=== PATIENT | female | born 1950 | race Caucasian/White ===

== ENCOUNTER 2017-07-13 21:42 | Emergency (ER) | payer MEDICARE ==
[2017-07-13 22:29] LABS: BASOPHIL % 0.4 % (0.0-0.4); Basophil (Absolute #) 0.06 (0-0.4); Eosinophil % 1.5 % (0.00-5.0); Eosinophil (Absolute #) 0.21 (0-0.5); Granulocytes % 77.7 % (36.0-66.0); Hematocrit 35.9 % (35-47); Hemoglobin 11.4 gm/dl (12.0-16.0); Lymphocyte (Absolute #) 2.03 (1.0-4.6); Lymphocytes % 14.3 % (24.0-44.0); Mean Cell Volume 74.3 fl (78-100); Mean Corpuscular Hemoglobin 23.6 pg (26-32); Mean Corpuscular Hgb Concent. 31.8 g/dl (32-36); Mean Platelet Volume 10.7 fl (6-9.5); Monocyte (Absolute #) 0.86 (0.0-1.3); Monocytes % 6.1 % (0.0-12.0); Platelet Count 311 K/mm3 (150-450); Red Blood Count 4.83 M/mm3 (4.1-5.4); Red Cell Distribution Width 16.3 % (11.5-14.0); White Blood Count 14.2 K/mm3 (4.0-10.5)
[2017-07-13 22:31] LABS: ADD MANUAL DIFF? NO (NO)
[2017-07-13 22:40] LABS: PROTIME 11.6 SECONDS (9.95-12.35)
[2017-07-13 22:49] LABS: ALBUMIN 3.7 g/dL (3.5-5.0); ALKALINE PHOSPHATASE 87 U/L (38-126); ANION GAP 24.2 MEQ/L (5-15); BLOOD UREA NITROGEN 91 mg/dL (7-17); CHLORIDE 99 mmol/L (98-107); Carbon Dioxide 19 mmol/L (22-30); Creatinine 1 7.11 mg/dL (0.52-1.04); EST GLOMERULAR FILTRATION RATE 6.1 ML/MIN; Glucose 281 mg/dL (74-106); MAGNESIUM 1.8 mg/dL (1.6-2.3); Potassium 5.3 mmol/L (3.5-5.1); SGOT/AST 9 U/L (14-36); SGPT/ALT 6 U/L (0-35); SODIUM 137 mmol/L (137-145); Total Protein 7.3 g/dL (6.3-8.2)
[2017-07-13 22:59] LABS: NT PRO BNP 9590 pg/mL (0-900)
[2017-07-13 23:01] LABS: TROPONIN 0.023 ng/mL (0.000-0.034)
[2017-07-13 23:02] LABS: A-aADO2 24; ABG HEMOGLOBIN 10.6; ABG POTASSIUM 4.9 (3.5-5.1); ARTERIAL BLD GAS O2 SATURATION 96.4 % (95-100); ARTERIAL BLOOD GAS BASE EXCESS -9.7 (-2.0-2.0); ARTERIAL BLOOD GAS FIO2 21 %; ARTERIAL BLOOD GAS PCO2 32 mmHg (35-45); ARTERIAL BLOOD GAS PO2 86 mmHg (75-100); CARBOXYHEMOGLOBIN 0.8 % THgb (0.0-6.9); HCO3- 15.7 (22-28); HGB O2 SAT 95.1 g/dF (94-100); Lactic Acid 0.8 (0.4-2.0); Methhemoglobin 0.5 % (1.4-1.5); paO2 pAO1 0.78
[2017-07-13 23:03] LABS: ABG SITE RIGHT BRACHIAL
[2017-07-14 00:27] LABS: D-DIMER QUANTITATION 1977 ng/mL (215-500)
[2017-07-14] MEDS ORDERED: Lasix 40 MG/4 ML (01:16)
[2017-07-14] MEDS: Lasix 40 MG/4 ML IV (01:18)
[2017-07-14] MEDS: ENOXAPARIN SODIUM SQ (01:23)
== END 2017-07-14 01:49 | disposition short-term general hospital (02) ==
LOC: ED 07-14 01:49
CPT/HCPCS: 36000; 36415; 36600; 71046; 80053; 82375; 82803; 83605; 83735; 83880; 84484; 85025; 85379; 85610; 93005; 93041; 93970; 96374; J1650; J1940

== ENCOUNTER 2017-10-04 09:06 | Emergency (ER) | payer MEDICARE ==
[2017-10-04 09:22] VITALS: BP 140/104; O2SAT 98
--- NOTE | 2017-10-04 09:26 | ERPHSYRPT ---
- History of Present Illness Time Seen by Provider: 10/04/17 09:08 Source: patient, family (daughter) Exam Limitations: no limitations Physician History: patient presents with swellling of her legs x 2-3 days; she missed her dialysis appt Monday and today of this week due to a in the family; no fever; no increased SOB; some Nausea; no CP or abdominal pain; no other complaints; Timing/Duration: yesterday, gradual onset, worse Severity: moderate Modifying Factors: Improves With: other (missed dialysis) Associated Symptoms: nausea, loss of appetite, No abdominal pain, No shortness of breath, No chills, No chest pain, No fever, No headaches, No rash, No syncope Allergies/Adverse Reactions: lorazepam [From Ativan] Adverse Reaction (Verified 07/13/17 22:14) Home Medications: Alprazolam [Xanax] 0.25 mg PO QID 05/16/12 [History] Furosemide 40 mg [Lasix 40 MG] 40 mg PO BID 05/16/12 [History] Glyburide [Diabeta] 10 mg PO BID 05/16/12 [History] Aspirin [Aspirin EC] 1 tab PO DAILY 04/28/14 [History] Atorvastatin Calcium 40 mg PO QHS 04/28/14 [History] Ferrous Sulfate 325 mg [Feosol 325 mg] 1 tab PO DAILY 04/28/14 [History] Hum Insulin NPH/Reg Insulin Hm [Humulin 70-30 Vial] 50 units SQ QAM 04/28/14 [ History] Hydrocodone Bit/Acetaminophen [Hydrocodon-Acetaminophen 5-325] 1 tab PO Q6HPRN PRN 04/28/14 [History] Levetiracetam 250 MG [Keppra 250 MG] 500 mg PO BID 04/28/14 [History] Metoprolol Succinate 100 mg [Toprol Xl 100 MG] 100 mg PO BID 04/28/14 [ History] Ergocalciferol (Vitamin D2) [Vitamin D2] 50,000 units PO UD 07/26/16 [History] Folic Acid 1 tab PO DAILY 07/26/16 [History] Hydralazine HCl 10 mg PO TID 07/26/16 [History] Insulin Regular, Human [Humulin R] 40 units SQ QPM 07/26/16 [History] Insulin Regular, Human [Humulin R] 50 units SQ QAM 07/26/16 [History] Calcium Carbonate [Tums] 400 mg PO DAILY 07/13/17 [History] Ferric Citrate [Auryxia] 210 mg PO TID 07/13/17 [History] Midodrine HCl 5 mg [Proamatine 5 mg] 5 mg PO UD 07/13/17 [History] Ondansetron ODT 4 MG [Zofran Odt 4 mg] 4 mg PO Q6H PRN PRN 07/13/17 [ History] Hx Tetanus, Diphtheria Vaccination/Date Given: Yes Hx Influenza Vaccination/Date Given: No Hx Pneumococcal Vaccination/Date Given: No - Review of Systems Constitutional: No Symptoms Eyes: No Symptoms, Other (chronic blind left eye) Ears, Nose, & Throat: No Symptoms Respiratory: No Cough, No Cyanosis, No Wheezing Cardiac: Edema, No Chest Pain, No Palpitations, No Syncope Abdominal/Gastrointestinal: Nausea, No Abdominal Pain, No Vomiting, No Diarrhea Genitourinary Symptoms: No Symptoms Musculoskeletal: No Symptoms Skin: Dryness (legs) Neurological: No Symptoms Psychological: Depression, No Alcohol Abuse, No Drug Abuse, No Suicidal Ideations Endocrine: Polydipsia, Cold Intolerance, No Polyuria Hematologic/Lymphatic: Anemia, Easy Bruising, No Blood Clots, No Gum Bleeding Immunological/Allergic: No Symptoms - Past Medical History Pertinent Past Medical History: Yes Neurological History: Seizures ENT History: Cataracts Cardiac History: Congestive Heart Failure, High Cholesterol, Hypertension Respiratory History: CHF Endocrine Medical History: Diabetes Type II Musculoskeletal History: Arthritis, Fractures, Other GI Medical History: No Pertinent History History: Renal Disease Psycho-Social History: Anxiety Female Reproductive Disorders: Other Other Medical History: "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 DIABETIC ULCERS TO BILAT FEET. OVARIAN CYST-REMOVED 20 YRS AGO - Past Surgical History Past Surgical History: Yes Neuro Surgical History: No Pertinent History Cardiac: Cardiac Catheterization Respiratory: No Pertinent History Gastrointestinal: Cholecystectomy Genitourinary: No Pertinent History Musculoskeletal: No Pertinent History Female Surgical History: Other Other Surgical History: R ovarian tumor, R ovary removed. L fistula placement - Social History Smoking Status: Never smoker Exposure to second hand smoke: No Alcohol Use: None Drug Use: none Patient Lives Alone: No Significant Family History: heart disease, diabetes, hypertension - Female History Hx Now: No - Physical Exam General Appearance: moderate distress (pain and swelling of legs), alert, obese Eye Exam: No eyes nml inspection (right wnl; left opaque post op) Ears, Nose, Throat Exam: normal ENT inspection, TMs normal, pharynx normal, moist mucous membranes Neck Exam: normal inspection, non-tender, supple, full range of motion Respiratory Exam: normal breath sounds, lungs clear, airway intact, No chest tenderness, No respiratory distress Cardiovascular Exam: regular rate/rhythm, normal heart sounds, normal peripheral pulses, capillary refill 2-3 sec, No murmur Gastrointestinal/Abdomen Exam: soft, normal bowel sounds, No tenderness, No guarding, No rebound Pelvic Exam: not done Rectal Exam: deferred Back Exam: normal inspection, normal range of motion, No CVA tenderness Extremity Exam: normal range of motion, pedal edema (4+ tense bilateral lower legs), tenderness, No normal inspection (lower leg discoloration; not red; not hot), No calf tenderness, No nicholas's sign Neurologic Exam: alert, oriented x 3, cooperative, technology intern II-XII nml as tested, normal mood/affect Skin Exam: normal color, warm, dry, No rash, No petechiae, No jaundice, No cyanosis Lymphatic Exam: No adenopathy SpO2 Interpretation: normal SpO2: 98 Oxygen Delivery: Room Air - Course Nursing assessment & vital signs reviewed: Yes - Progress Progress Note: 10/04/17 09:27 discussed findings and need for dialysis; dialysis ok and can accept her now; discussed with the patient and family and they concur and will go to dialysis now; dialysis informed and agreed; instructions given Counseled pt/family regarding: diagnosis, need for follow-up - Departure Time of Disposition: 09:29 Departure Disposition: Home Clinical Impression: Renal failure (ARF), acute on chronic, bialteral edema from missed dialysis Condition: Fair Critical Care Time: No Referrals: OSCAR MARTIN [Primary Care Provider] - Additional Instructions: go to dialysis now Follow-up with family doctor as directed. Call for appointment. Return if any problems. If you smoke please stop. Call or follow up with your family doctor for assistance if you need it to stop. Please wear your seatbelt when driving. Have a nice day. Thank you for allowing us to participate in your care today. :o) Dr Gabriel Ruiz
[2017-10-04 09:39] VITALS: PULSE 96
== END 2017-10-04 09:39 | disposition home or self-care (01) ==
LOC: ED 09:06
DX: N17.9 Acute kidney failure, unspecified (principal); R60.0 Localized edema; Z79.82 Long term (current) use of aspirin; Z79.899 Other long term (current) drug therapy
CPT/HCPCS: 99283